=== PATIENT | female | born 1950 | race Caucasian/White ===

== ENCOUNTER 2016-11-29 03:07 | Inpatient (IN) | payer OTHER ==
[~2016-11-29] VITALS: Ht 160 cm; Wt 75.0 kg
[2016-11-29 04:05] LABS: BASOPHIL % 0.4 % (0-2); PLATELET COUNT 296 x10^3mcL (130-400); RED CELL DISTRIBUTION WIDTH 12.9 % (11.5-14.5)
[2016-11-29 04:08] LABS: CALCIUM 9.3 mg/dL (8.5-10.1); CARBON DIOXIDE 28.7 mmol/L (21-32); CHLORIDE SERUM 104 mmol/L (98-107); CREATININE SERUM 0.8 mg/dL (0.6-1.0); GFR1 > 60 mL/min; GLUCOSE SERUM 94 mg/dL (74-106); POTASSIUM SERUM 3.9 mmol/L (3.5-5.1); SODIUM SERUM 142 mmol/L (136-145)
[2016-11-29 04:13] LABS: ALKALINE PHOSPHATASE 74 U/L (46-116); ALT/SGPT 21 U/L (14-59); AST/SGOT 17 U/L (15-37); BILIRUBIN TOTAL 0.33 mg/dL (0.20-1.00); TOTAL PROTEIN, SERUM 7.4 g/dL (6.4-8.2)
[2016-11-29 04:14] LABS: ALBUMIN 3.3 g/dL (3.4-5.0)
[2016-11-29 05:58] LABS: T3 TOTAL 1.36 ng/mL
[2016-11-29 05:59] LABS: CHOLESTEROL/HDL RATIO 4.5; MAGNESIUM 1.8 mg/dL (1.8-2.4); PHOSPHOROUS 3.5 mg/dL (2.5-4.9)
[2016-11-29 06:07] LABS: FREE THYROXINE INDEX 2.9 ug/dL (1.4-4.5); T4(THYROXINE) 8.3 ug/dL (4.7-13.3)
[2016-11-29 06:16] LABS: FREE T4 1.13 ng/dL (0.76-1.46)
[2016-11-29] MEDS ORDERED: TOPROL XL25 MG (09:00)
[2016-11-29] MEDS ORDERED: FUROSEMIDE5 GM (09:00)
[2016-11-29] MEDS ORDERED: SIMVASTATIN10 M1 (09:00)
[2016-11-29] MEDS ORDERED: LISINOPRIL2.5 MG (09:00)
[2016-11-29] MEDS ORDERED: BENTYL10 MG (09:00)
[2016-11-29] MEDS ORDERED: LEXAPRO5 M1 (09:01)
[2016-11-29 09:37] VITALS: BP 131/74
[2016-11-29 10:55] VITALS: BP 129/73
[2016-11-29 12:00] VITALS: BP 102/71; BP 112/65
[2016-11-29 16:00] VITALS: BP 104/68
[2016-11-29 19:48] VITALS: BP 105/58
[2016-11-29 22:10] LABS: microscopic required? YES; urine erythrocyte 1+ (NEGATIVE)
[2016-11-29 22:22] LABS: AMPHETAMINE QUAL UR NONE DETECTED (NEG <=1000)
[2016-11-30 03:20] VITALS: BP 109/60
[2016-11-30 04:31] LABS: PLATELET COUNT 265 x10^3mcL (130-400); RED CELL DISTRIBUTION WIDTH 13.2 % (11.5-14.5)
[2016-11-30 04:34] LABS: BASOPHIL % 0 % (0-2)
[2016-11-30 07:33] VITALS: BP 109/73
[2016-11-30 08:42] VITALS: Ht 160 cm; Wt 75.0 kg
[2016-11-30 11:31] VITALS: BP 107/59
[2016-11-30 15:52] VITALS: BP 119/48
[2016-11-30 21:30] VITALS: BP 119/54
[2016-12-01 08:56] LABS: CALCIUM 8.6 mg/dL (8.5-10.1); CARBON DIOXIDE 24.7 mmol/L (21-32); CHLORIDE SERUM 110 mmol/L (98-107); CREATININE SERUM 0.7 mg/dL (0.6-1.0); GFR1 > 60 mL/min; GLUCOSE SERUM 128 mg/dL (74-106); MAGNESIUM 2.3 mg/dL (1.8-2.4); PHOSPHOROUS 2.6 mg/dL (2.5-4.9); PLATELET COUNT 266 x10^3mcL (130-400); POTASSIUM SERUM 4.9 mmol/L (3.5-5.1); RED CELL DISTRIBUTION WIDTH 13.6 % (11.5-14.5); SODIUM SERUM 145 mmol/L (136-145)
[2016-12-01 10:02] LABS: BASOPHIL % 0 % (0-2)
[2016-12-01 10:43] VITALS: BP 124/66
[2016-12-01 14:05] VITALS: BP 147/64
[2016-12-01 15:02] VITALS: BP 147/64
[2016-12-01] MEDS ORDERED: MEDDP PO (15:47)
[2016-12-01] MEDS ORDERED: SYMBICORT1 AE3 INH (15:47)
[2016-12-01] MEDS ORDERED: PROAIR HFA8.5 GM IH (15:55)
== END 2016-12-01 16:33 | disposition home or self-care (01) | DRG 915 ==
LOC: ED 03:07 → IC 08:24 → DU 11-30 19:19
PROVIDERS: Emergency Medicine; ADMIT Family Medicine
PROC: 30233L1 Transfusion of Nonautologous Fresh Plasma into Peripheral Vein, Percutaneous Approach (ICD-10-PCS; principal; 2016-11-29)
DX: T78.3XXA Angioneurotic edema, initial encounter (principal); N17.0 Acute kidney failure with tubular necrosis; J96.00 Acute respiratory failure, unspecified whether with hypoxia or hypercapnia; J44.1 Chronic obstructive pulmonary disease with (acute) exacerbation; E44.1 Mild protein-calorie malnutrition; F32.9 Major depressive disorder, single episode, unspecified; D64.9 Anemia, unspecified; E78.2 Mixed hyperlipidemia; I10 Essential (primary) hypertension; K58.9 Irritable bowel syndrome, unspecified; Z68.29 Body mass index [BMI] 29.0-29.9, adult
CPT/HCPCS: 83880; 84439; J1200; J1885; J1940; J2930; J7030; J7050; J7620; J7633; P9059; Q0092

== ENCOUNTER 2017-02-19 10:19 | Emergency (ER) | payer OTHER ==
[~2017-02-19] VITALS: Ht 160 cm; Wt 72.6 kg
[~2017-02-19 10:19] MED LIST: BENTYL10 MG; FUROSEMIDE5 GM; LEXAPRO5 M1; LISINOPRIL2.5 MG; MEDDP PO; PROAIR HFA8.5 GM IH; SIMVASTATIN10 M1; SYMBICORT1 AE3 INH; TOPROL XL25 MG
[2017-02-19 11:03] LABS: BASOPHIL % 0.4 % (0-2); PLATELET COUNT 226 x10^3mcL (130-400); RED CELL DISTRIBUTION WIDTH 13.1 % (11.5-14.5)
[2017-02-19 11:13] LABS: CALCIUM 9.2 mg/dL (8.5-10.1); CARBON DIOXIDE 31.2 mmol/L (21-32); CHLORIDE SERUM 107 mmol/L (98-107); CREATININE SERUM 0.8 mg/dL (0.6-1.0); GFR1 > 60 mL/min; GLUCOSE SERUM 83 mg/dL (74-106); POTASSIUM SERUM 4.6 mmol/L (3.5-5.1); SODIUM SERUM 145 mmol/L (136-145)
[2017-02-19 11:17] LABS: ALBUMIN 3.8 g/dL (3.4-5.0); ALKALINE PHOSPHATASE 87 U/L (46-116); AMYLASE 88 U/L (25-115); AST/SGOT 12 U/L (15-37); BILIRUBIN TOTAL 0.29 mg/dL (0.20-1.00); LIPASE 255 IU/L (73-393); TOTAL PROTEIN, SERUM 7.3 g/dL (6.4-8.2)
[2017-02-19 11:27] LABS: ALT/SGPT 17 U/L (14-59)
[2017-02-19 12:08] LABS: UA SPECIFIC GRAVITY 1.015 (1.005-1.035); microscopic required? YES; urine erythrocyte 1+ (NEGATIVE)
[2017-02-19 13:51] VITALS: BP 120/68
== END 2017-02-19 13:51 | disposition home or self-care (01) ==
LOC: ED 10:19
PROVIDERS: Emergency Medicine
DX: M51.36 Other intervertebral disc degeneration, lumbar region (principal); M48.061 Spinal stenosis, lumbar region without neurogenic claudication; I10 Essential (primary) hypertension; E78.00 Pure hypercholesterolemia, unspecified; Z90.49 Acquired absence of other specified parts of digestive tract
CPT/HCPCS: 83880; J1885

== ENCOUNTER 2017-08-02 18:21 | Inpatient (IN) | payer OTHER ==
[~2017-08-02] VITALS: Ht 160 cm; Wt 69.7 kg
[~2017-08-02 18:21] MED LIST changes: -FUROSEMIDE5 GM; +FUROSEMIDE5 GM PO; -LEXAPRO5 M1; +LEXAPRO5 M1 PO
[2017-08-02 19:16] LABS: BASOPHIL % 0.3 % (0-2); RED CELL DISTRIBUTION WIDTH 14.1 % (11.5-14.5)
[2017-08-02 19:17] LABS: PLATELET COUNT 468 x10^3mcL (130-400)
[2017-08-02 19:18] LABS: CALCIUM 8.8 mg/dL (8.5-10.1); CARBON DIOXIDE 24.6 mmol/L (21-32); CHLORIDE SERUM 99 mmol/L (98-107); CREATININE SERUM 0.7 mg/dL (0.6-1.0); GFR1 > 60 mL/min; GLUCOSE SERUM 104 mg/dL (74-106); POTASSIUM SERUM 3.8 mmol/L (3.5-5.1); SODIUM SERUM 133 mmol/L (136-145)
[2017-08-02 19:22] LABS: ALKALINE PHOSPHATASE 72 U/L (46-116); ALT/SGPT 18 U/L (14-59); AST/SGOT 18 U/L (15-37); BILIRUBIN TOTAL 0.47 mg/dL (0.20-1.00); TOTAL PROTEIN, SERUM 7.1 g/dL (6.4-8.2)
[2017-08-02 19:24] LABS: ALBUMIN 2.7 g/dL (3.4-5.0)
[2017-08-02] MEDS ORDERED: WELLBUTRIN SR150 M1 (19:42)
[2017-08-02] MEDS ORDERED: PRE15 (19:46)
[2017-08-02] MEDS ORDERED: D-20001 TAB (19:47)
[2017-08-02] MEDS ORDERED: SYMBYAX (19:47)
[2017-08-02] MEDS ORDERED: CYCLOBENZAPRINE5 MG (19:48)
[2017-08-02] MEDS ORDERED: LIDODERM51 (19:48)
[2017-08-02 20:18] LABS: CHOLESTEROL/HDL RATIO 4.1; MAGNESIUM 1.7 mg/dL (1.8-2.4); PHOSPHOROUS 2.8 mg/dL (2.5-4.9)
[2017-08-02 20:26] LABS: FREE T4 1.62 ng/dL (0.76-1.46); FREE THYROXINE INDEX 3.6 ug/dL (1.4-4.5); T4(THYROXINE) 10.5 ug/dL (4.7-13.3)
[2017-08-02 20:29] LABS: T3 TOTAL 1.43 ng/mL
[2017-08-02 20:36] VITALS: BP 98/61
[2017-08-02 23:59] LABS: UA SPECIFIC GRAVITY <=1.005 (1.005-1.035); microscopic required? YES; urine erythrocyte TRACE (NEGATIVE)
[2017-08-03 03:35] LABS: BASOPHIL % 0 % (0-2); PLATELET COUNT 468 x10^3mcL (130-400); RED CELL DISTRIBUTION WIDTH 13.7 % (11.5-14.5)
[2017-08-03 03:42] LABS: CALCIUM 8.8 mg/dL (8.5-10.1); CARBON DIOXIDE 24.8 mmol/L (21-32); CHLORIDE SERUM 100 mmol/L (98-107); CREATININE SERUM 0.9 mg/dL (0.6-1.0); GFR1 > 60 mL/min; GLUCOSE SERUM 189 mg/dL (74-106); MAGNESIUM 2.3 mg/dL (1.8-2.4); PHOSPHOROUS 3.1 mg/dL (2.5-4.9); POTASSIUM SERUM 3.9 mmol/L (3.5-5.1); SODIUM SERUM 136 mmol/L (136-145)
[2017-08-03 05:47] VITALS: BP 122/66
[2017-08-03 08:20] VITALS: Ht 160 cm; Wt 69.7 kg
[2017-08-03 09:39] VITALS: BP 129/74
[2017-08-03 13:51] VITALS: BP 130/69
[2017-08-03 17:56] VITALS: BP 107/59
[2017-08-03 20:37] VITALS: BP 109/62
[2017-08-04 05:24] VITALS: BP 109/61
[2017-08-04 06:22] LABS: RED CELL DISTRIBUTION WIDTH 14.2 % (11.5-14.5)
[2017-08-04 06:48] LABS: CALCIUM 9.3 mg/dL (8.5-10.1); CARBON DIOXIDE 26.4 mmol/L (21-32); CHLORIDE SERUM 103 mmol/L (98-107); CREATININE SERUM 0.8 mg/dL (0.6-1.0); GFR1 > 60 mL/min; GLUCOSE SERUM 137 mg/dL (74-106); POTASSIUM SERUM 3.9 mmol/L (3.5-5.1); SODIUM SERUM 140 mmol/L (136-145)
[2017-08-04 06:58] LABS: PLATELET COUNT 449 x10^3mcL (130-400)
[2017-08-04 08:40] VITALS: BP 116/66
[2017-08-04 11:20] LABS: BAND NEUTROPHIL 2 % (0-10); BASOPHIL 0 % (0-2); MONOCYTE 7 % (0-7); PLATELET MORPHOLOGY PLATELETS INCREASED; SEGMENTED NEUTROPHILS 87 % (37-75)
[2017-08-04 13:09] VITALS: BP 130/70
[2017-08-04 16:13] VITALS: BP 116/60
[2017-08-04 19:15] VITALS: BP 118/54
[2017-08-04 20:36] VITALS: BP 103/55
[2017-08-05 05:43] VITALS: BP 121/61
[2017-08-05 06:12] LABS: BASOPHIL % 0.1 % (0-2); RED CELL DISTRIBUTION WIDTH 14.1 % (11.5-14.5)
[2017-08-05 06:43] LABS: PLATELET COUNT 466 x10^3mcL (130-400)
[2017-08-05 06:48] LABS: CALCIUM 9.3 mg/dL (8.5-10.1); CARBON DIOXIDE 31.8 mmol/L (21-32); CHLORIDE SERUM 101 mmol/L (98-107); CREATININE SERUM 0.8 mg/dL (0.6-1.0); GFR1 > 60 mL/min; GLUCOSE SERUM 118 mg/dL (74-106); POTASSIUM SERUM 4.9 mmol/L (3.5-5.1); SODIUM SERUM 141 mmol/L (136-145)
[2017-08-05 09:46] VITALS: BP 135/72
[2017-08-05 12:53] VITALS: BP 120/66
[2017-08-05 17:16] VITALS: BP 126/62
[2017-08-05 20:54] VITALS: BP 113/58
[2017-08-06 05:20] VITALS: BP 126/70
[2017-08-06 07:13] LABS: CALCIUM 9.2 mg/dL (8.5-10.1); CARBON DIOXIDE 31.2 mmol/L (21-32); CHLORIDE SERUM 100 mmol/L (98-107); CREATININE SERUM 0.9 mg/dL (0.6-1.0); GFR1 > 60 mL/min; GLUCOSE SERUM 115 mg/dL (74-106); POTASSIUM SERUM 5.1 mmol/L (3.5-5.1); SODIUM SERUM 140 mmol/L (136-145)
[2017-08-06 08:08] LABS: BASOPHIL % 0.2 % (0-2); PLATELET COUNT 465 x10^3mcL (130-400); RED CELL DISTRIBUTION WIDTH 14.1 % (11.5-14.5)
[2017-08-06 08:39] VITALS: BP 138/63
[2017-08-06 09:09] VITALS: BP 126/70
[2017-08-06 09:19] VITALS: BP 138/63
[2017-08-06] MEDS ORDERED: MEDDP PO (10:14)
[2017-08-06] MEDS ORDERED: TES100 PO (10:14)
[2017-08-06] MEDS ORDERED: PULMICORT0.25 MG/2 IH (10:14)
[2017-08-06] MEDS ORDERED: LEVAQUIN750 MG PO (10:16)
[2017-08-06] MEDS ORDERED: CLEOCIN HCL300 MG PO (10:17)
[2017-08-06] MEDS ORDERED: LAC PO (10:18)
== END 2017-08-06 13:35 | disposition home or self-care (01) | DRG 871 ==
LOC: ED 18:21 → DU 19:27 → MU 08-05 18:47
PROVIDERS: Emergency Medicine; Family Medicine
DX: A41.9 Sepsis, unspecified organism (principal); J69.0 Pneumonitis due to inhalation of food and vomit; J96.00 Acute respiratory failure, unspecified whether with hypoxia or hypercapnia; E43 Unspecified severe protein-calorie malnutrition; J96.01 Acute respiratory failure with hypoxia; N17.0 Acute kidney failure with tubular necrosis; E87.1 Hypo-osmolality and hyponatremia; J44.1 Chronic obstructive pulmonary disease with (acute) exacerbation; Z68.44 Body mass index [BMI] 60.0-69.9, adult; I10 Essential (primary) hypertension; E78.00 Pure hypercholesterolemia, unspecified; M94.0 Chondrocostal junction syndrome [Tietze]; F32.9 Major depressive disorder, single episode, unspecified; E78.5 Hyperlipidemia, unspecified; K58.9 Irritable bowel syndrome, unspecified; E55.9 Vitamin D deficiency, unspecified; F41.9 Anxiety disorder, unspecified; D64.9 Anemia, unspecified; D47.3 Essential (hemorrhagic) thrombocythemia; K21.9 Gastro-esophageal reflux disease without esophagitis; E66.9 Obesity, unspecified; Z88.3 Allergy status to other anti-infective agents; Z88.2 Allergy status to sulfonamides; Z91.09 Other allergy status, other than to drugs and biological substances; Z90.49 Acquired absence of other specified parts of digestive tract
CPT/HCPCS: 83880; 84439; J0696; J1940; J1956; J2920; J2930; J3010; J3475; J3490; J7030; J7050; J7613; J7620; J7633; J7644; Q0092; Q9967

== ENCOUNTER 2018-02-06 02:21 | Inpatient (IN) | payer OTHER ==
[~2018-02-06] VITALS: Ht 160 cm; Wt 70.1 kg
[~2018-02-06 02:21] MED LIST changes: +CLEOCIN HCL300 MG PO; +CYCLOBENZAPRINE5 MG; +D-20001 TAB; +LAC PO; +LEVAQUIN750 MG PO; +LIDODERM51; +PRE15; +PULMICORT0.25 MG/2 IH; +SYMBYAX; +TES100 PO; +WELLBUTRIN SR150 M1
[2018-02-06 02:25] VITALS: Ht 160 cm; Wt 70.1 kg
[2018-02-06 04:29] LABS: microscopic required? YES; urine erythrocyte 2+ (NEGATIVE)
[2018-02-06] MEDS ORDERED: NEU300 PO (06:24)
[2018-02-06 09:12] VITALS: BP 123/58
[2018-02-06 16:27] VITALS: BP 150/55
[2018-02-06 17:57] VITALS: BP 145/72
[2018-02-06 20:47] VITALS: BP 148/71
[2018-02-07 05:50] VITALS: BP 136/74
[2018-02-07 06:28] LABS: PLATELET COUNT 231 x10^3mcL (130-400)
[2018-02-07 06:46] LABS: CALCIUM 8.7 mg/dL (8.5-10.1); CARBON DIOXIDE 28.3 mmol/L (21-32); CHLORIDE SERUM 109 mmol/L (98-107); CREATININE SERUM 0.8 mg/dL (0.6-1.0); GFR1 > 60 mL/min; GLUCOSE SERUM 148 mg/dL (74-106); POTASSIUM SERUM 4.9 mmol/L (3.5-5.1); SODIUM SERUM 145 mmol/L (136-145)
[2018-02-07 07:05] LABS: BASOPHIL % 0 % (0-2); RED CELL DISTRIBUTION WIDTH 14.8 % (11.5-14.5)
[2018-02-07 09:43] VITALS: BP 144/72
== END 2018-02-07 14:20 | disposition home or self-care (01) | DRG 552 ==
LOC: ED 02:21 → MU 07:05
PROVIDERS: Emergency Medicine; Internal Medicine
DX: M48.061 Spinal stenosis, lumbar region without neurogenic claudication (principal); N39.0 Urinary tract infection, site not specified; M54.42 Lumbago with sciatica, left side; K57.90 Diverticulosis of intestine, part unspecified, without perforation or abscess without bleeding; G89.4 Chronic pain syndrome; I10 Essential (primary) hypertension; E78.5 Hyperlipidemia, unspecified
CPT/HCPCS: 97110-GP; 97116-GP; 97530-GP; J1644; J1885; J2270; J2405; J2800; J2920; J3535; J7030; J7633; Q0162

== ENCOUNTER 2018-02-14 14:54 | Inpatient (IN) | payer OTHER ==
[~2018-02-14] VITALS: Ht 160 cm; Wt 68.0 kg
[~2018-02-14 14:54] MED LIST changes: +NEU300 PO
[2018-02-14 15:08] VITALS: Ht 160 cm; Wt 68.0 kg
[2018-02-14 15:55] LABS: BASOPHIL % 0.3 % (0-2); PLATELET COUNT 235 x10^3mcL (130-400); RED CELL DISTRIBUTION WIDTH 14.4 % (11.5-14.5)
[2018-02-14 16:01] LABS: CALCIUM 8.7 mg/dL (8.5-10.1); CARBON DIOXIDE 29.5 mmol/L (21-32); CHLORIDE SERUM 107 mmol/L (98-107); CREATININE SERUM 0.8 mg/dL (0.6-1.0); GFR1 > 60 mL/min; GLUCOSE SERUM 98 mg/dL (74-106); POTASSIUM SERUM 4.5 mmol/L (3.5-5.1); SODIUM SERUM 148 mmol/L (136-145)
[2018-02-14 16:06] LABS: ALBUMIN 3.6 g/dL (3.4-5.0); ALKALINE PHOSPHATASE 79 U/L (46-116); ALT/SGPT 47 U/L (14-59); AST/SGOT 20 U/L (15-37); BILIRUBIN TOTAL 0.26 mg/dL (0.20-1.00); TOTAL PROTEIN, SERUM 7.6 g/dL (6.4-8.2)
[2018-02-14] MEDS ORDERED: NORCO1 TA2 (17:27)
[2018-02-14 18:10] VITALS: BP 150/72
[2018-02-14 21:08] VITALS: BP 114/68
[2018-02-15 05:38] VITALS: BP 111/61
[2018-02-15 06:25] LABS: BASOPHIL % 0.5 % (0-2); PLATELET COUNT 197 x10^3mcL (130-400)
[2018-02-15 06:42] LABS: ALKALINE PHOSPHATASE 63 U/L (46-116); ALT/SGPT 38 U/L (14-59); AST/SGOT 17 U/L (15-37); BILIRUBIN TOTAL 0.3 mg/dL (0.20-1.00); CALCIUM 8.7 mg/dL (8.5-10.1); CARBON DIOXIDE 28.6 mmol/L (21-32); CHLORIDE SERUM 106 mmol/L (98-107); CREATININE SERUM 0.8 mg/dL (0.6-1.0); GFR1 > 60 mL/min; GLUCOSE SERUM 95 mg/dL (74-106); MAGNESIUM 1.9 mg/dL (1.8-2.4); PHOSPHOROUS 3.8 mg/dL (2.5-4.9); POTASSIUM SERUM 4.8 mmol/L (3.5-5.1); SODIUM SERUM 140 mmol/L (136-145); TOTAL PROTEIN, SERUM 6.4 g/dL (6.4-8.2)
[2018-02-15 06:45] LABS: RED CELL DISTRIBUTION WIDTH 14.6 % (11.5-14.5)
[2018-02-15 08:56] VITALS: BP 110/50
[2018-02-15 10:02] LABS: UA SPECIFIC GRAVITY 1.015 (1.005-1.035); microscopic required? YES; urine erythrocyte NEGATIVE (NEGATIVE)
[2018-02-15 17:57] VITALS: BP 107/65
[2018-02-15 22:45] VITALS: BP 127/72
[2018-02-16 05:52] VITALS: BP 104/68
[2018-02-16 09:15] VITALS: BP 129/76
[2018-02-16 17:02] VITALS: BP 137/71
[2018-02-16 20:24] VITALS: BP 112/64
[2018-02-17 05:00] VITALS: BP 119/72
[2018-02-17] MEDS ORDERED: MOT400 PO (09:31)
[2018-02-17 09:45] VITALS: BP 114/62
[2018-02-17 18:46] VITALS: BP 136/91
[2018-02-17 20:43] VITALS: BP 118/75
[2018-02-18 05:33] VITALS: BP 131/68
[2018-02-18 10:10] VITALS: BP 138/78
[2018-02-18 15:31] VITALS: BP 138/78
[2018-02-18 17:39] VITALS: BP 130/73
== END 2018-02-18 18:32 | DRG 552 ==
LOC: ED 14:54 → MU 17:13
PROVIDERS: Emergency Medicine; Internal Medicine Pulmonary Disease
DX: M51.17 Intervertebral disc disorders with radiculopathy, lumbosacral region (principal); M62.830 Muscle spasm of back; G89.29 Other chronic pain; I10 Essential (primary) hypertension; Z68.26 Body mass index [BMI] 26.0-26.9, adult
CPT/HCPCS: 97110-GP; 97116-GP; J1885; J2270; J2405